=== PATIENT | female | born 1990 | race Caucasian/White ===

== ENCOUNTER 2024-08-16 13:29 | Emergency (ER) | payer SELFPAY ==
[~2024-08-16] VITALS: Ht 167.6 cm; Wt 63.5 kg
[2024-08-16] MEDS ORDERED: PredniSONE 20 MG Tab PO ONE (14:35)
[2024-08-16] MEDS ORDERED: Acetaminophen 500 MG Tab PO ONE (14:35)
[2024-08-16] MEDS ORDERED: DiphenhydrAMINE HCl 50 MG Cap PO ONE (14:35)
[2024-08-16] MEDS ORDERED: Ketorolac Tromethamine 15mg Vial IM ONE (14:35)
[2024-08-16] MEDS ORDERED: BENADRYL25 M1 PO (14:47)
== END 2024-08-16 14:57 | disposition home or self-care (01) ==
LOC: ER 13:29
DX: L23.7 Allergic contact dermatitis due to plants, except food (principal)
CPT/HCPCS: 96372; 99282-25; A9270; J1885; J7512

== ENCOUNTER 2024-10-27 19:13 | Emergency (ER) | payer OTHER ==
[~2024-10-27] VITALS: Ht 167.6 cm; Wt 61.2 kg
[~2024-10-27 19:13] MED LIST: BENADRYL25 M1 PO
[2024-10-27] MEDS ORDERED: AMOCLA875 PO (19:50)
[2024-10-27] MEDS ORDERED: RX Prepack 2 Tabs Ondansetron ODT 4MG UD ONE (19:50)
[2024-10-27] MEDS ORDERED: RX Prepack 6 Tabs Oxycodone 5mg UD ONE (19:50)
[2024-10-27] MEDS ORDERED: Ketorolac Tromethamine 30mg Vial IM ONE (19:50)
== END 2024-10-27 19:56 | disposition home or self-care (01) ==
LOC: ER 19:13
DX: K04.7 Periapical abscess without sinus (principal); K02.9 Dental caries, unspecified; Z79.899 Other long term (current) drug therapy
CPT/HCPCS: 96372; 99282-25; A9270; J1885